=== PATIENT | female | born 1955 | race Caucasian/White ===

== ENCOUNTER 2017-12-17 07:58 | Emergency (ER) | payer BC ==
[2017-12-17] MEDS ORDERED: TETANUS & DIPHTHERIA TOX,ADULT 0.5 ML VIAL ONE (08:38)
--- NOTE | 2017-12-17 08:39 | EDPHYS ---
Physician Documentation [facility] Name: Beena Rutherford Age: 62 yrs Sex: Female : 1955 Arrival Date: 12/17/2017 Time: 08:02 Bed 5 Private MD: Eugene Mills C ED Physician Olu Miller HPI: 12/17 08:32 This 62 yrs old Female presents to ER via Ambulatory with complaints of jr8 Finger Injury. 08:32 The patient or guardian reports pain, swelling, tenderness. The complaints affect the jr8 PIP of right middle finger. Context: The problem was sustained outdoors, resulted from a penetrating injury, sago palm . Onset: The symptoms/episode began/occurred acutely, yesterday. Modifying factors: The symptoms are alleviated by nothing, the symptoms are aggravated by movement. Associated signs and symptoms: The patient has no apparent associated signs or symptoms. Severity of symptoms: At their worst the symptoms were mild, in the emergency department the symptoms are unchanged. The patient has not experienced similar symptoms in the past. The patient has not recently seen a physician. Historical: - Allergies: 08:32 NKA; iw - Home Meds: 08:32 lithium carbonate 450 mg Oral TbER every 3 days [Active]; alendronate 10 mg oral tab iw weekly [Active]; - PMHx: 08:32 kidney disease; iw - PSHx: 08:32 Cholecystectomy; iw - Immunization history:: Adult Immunizations not up to date. - Social history:: Smoking status: Patient/guardian denies using tobacco. ROS: 08:32 Eyes: Negative for injury, pain, redness, and discharge, ENT: Negative for injury, jr8 pain, and discharge, Neck: Negative for injury, pain, and swelling, Cardiovascular: Negative for chest pain, palpitations, and edema, Respiratory: Negative for shortness of breath, cough, wheezing, and pleuritic chest pain, Abdomen/GI: Negative for abdominal pain, nausea, vomiting, diarrhea, and constipation, Back: Negative for injury and pain, Skin: Negative for injury, rash, and discoloration, Neuro: Negative for headache, weakness, numbness, tingling, and seizure. 08:32 MS/extremity: Positive for pain, puncture, swelling, tenderness, of the PIP of right middle finger. Exam: 08:32 Cardiovascular: Regular rate and rhythm with a normal S1 and S2. No gallops, murmurs, jr8 or rubs. Normal PMI, no JVD. No pulse deficits. Respiratory: Lungs have equal breath sounds bilaterally, clear to auscultation and percussion. No rales, rhonchi or wheezes noted. No increased work of breathing, no retractions or nasal flaring. Skin: Warm, dry with normal turgor. Normal color with no rashes, no lesions, and no evidence of cellulitis. MS/ Extremity: Pulses equal, no cyanosis. Neurovascular intact. Full, normal range of motion. Mild swelling to the PIP of the middle finger right hand. Tender to palpation. Small puncture noted over the joint. Minimal pain with passive flextion with resistence. No cellulitis or lymphangitis noted Neuro: Awake and alert, GCS 15, oriented to person, place, time, and situation. Cranial nerves II-XII grossly intact. Motor strength 5/5 in all extremities. Sensory grossly intact. Cerebellar exam normal. Normal gait. Vital Signs: 08:32 BP 144 / 80; Pulse 53; Resp 16 S; Temp 98.2; Pulse Ox 99% on R/A; Weight 56.7 kg; iw Height 5 ft. 2 in. (157.48 cm); Pain 3/10; 08:32 Body Mass Index 22.86 (56.70 kg, 157.48 cm) iw MDM: 08:22 Patient medically screened. jr8 08:37 Data reviewed: vital signs, nurses notes, and as a result, I will discharge patient. jr8 Data interpreted: Pulse oximetry: on room air is 99 %. Interpretation: normal. Counseling: I had a detailed discussion with the patient and/or guardian regarding: the historical points, exam findings, and any diagnostic results supporting the discharge/admit diagnosis, the need for outpatient follow up, a family practitioner, to return to the emergency department if symptoms worsen or persist or if there are any questions or concerns that arise at home. 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 Exp: sg 05/04/2019. Lot #: [id number]. } Route: IM; Site: left deltoid; 09:00 Follow up: Response: No adverse reaction Disposition: 12/17/17 08:38 Discharged to Home. Impression: Puncture wound without foreign body of finger without damage to nail. - Condition is Stable. - Discharge Instructions: Puncture Wound. - Prescriptions for Keflex 500 mg Oral Capsule - take 1 capsule by ORAL route every 8 hours for 7 days; 21 capsule. - Medication Reconciliation Form, Thank You Letter, Antibiotic Education, Prescription Opioid Use form. - Follow up: Eugene Mills MD; When: 5 - 6 days; Reason: Recheck today's complaints, Continuance of care, Re-evaluation by your physician. - Problem is new. - Symptoms have improved. Addendum: 12/19/2017 08:53 Co-signature as Attending Physician, Olu Miller MD I agree with the assessment and c joseph plan of care. Signatures: Sonido Cormier RN Olu Rice MD MD cha Williams, Irene, RN RN Lorenzo Pina PA PA jr8 Corrections: (The following items were deleted from the chart) 12/17 08:45 08:38 12/17/2017 08:38 Discharged to Home. Impression: Puncture wound without foreign sg body of finger without damage to nail. Condition is Stable. Forms are Medication Reconciliation Form, Thank You Letter, Antibiotic Education, Prescription Opioid Use. Follow up: Eugene Mills; When: 5 - 6 days; Reason: Recheck today's complaints, Continuance of care, Re-evaluation by your physician. Problem is new. Symptoms have improved. jr8
--- NOTE | 2017-12-17 08:39 | ER ---
Nurse's Notes [facility] Name: Beena Rutherford Age: 62 yrs Sex: Female : 1955 Arrival Date: 12/17/2017 Time: 08:02 Bed 5 Private MD: Eugene Mills C Diagnosis: Puncture wound without foreign body of finger without damage to nail Presentation: 12/17 08:28 Presenting complaint: Patient states: pt got stuck with palm frond to right middle iw finger yesterday, has pain, mild swelling and redness to area,is afraid there may be something stuck in finger. Transition of care: patient was not received from another setting of care. Onset of symptoms was December 16, 2017. Initial Sepsis Screen: Does the patient meet any 2 criteria? No. Patient's initial sepsis screen is negative. Does the patient have a suspected source of infection? No. Patient's initial sepsis screen is negative. Care prior to arrival: None. 08:28 Method Of Arrival: Ambulatory iw 08:28 Acuity: ALMA 4 iw Triage Assessment: 08:35 General: Appears in no apparent distress. Behavior is calm, cooperative, appropriate sg for age. Injury Description: Puncture sustained to PIP of right middle finger. Historical: - Allergies: 08:32 NKA; iw - Home Meds: 08:32 lithium carbonate 450 mg Oral TbER every 3 days [Active]; alendronate 10 mg oral tab iw weekly [Active]; - PMHx: 08:32 kidney disease; iw - PSHx: 08:32 Cholecystectomy; iw - Immunization history:: Adult Immunizations not up to date. - Social history:: Smoking status: Patient/guardian denies using tobacco. Screenin:35 Abuse screen: Denies threats or abuse. Denies injuries from another. Nutritional sg screening: No deficits noted. Tuberculosis screening: No symptoms or risk factors identified. Never had TB. Fall Risk None identified. Assessment: 08:35 General: Appears in no apparent distress. Behavior is calm, cooperative, appropriate sg for age. Pain: Complains of pain in PIP of right middle finger. Neuro: No deficits noted. Cardiovascular: No deficits noted. Denies chest pain, diaphoresis, fatigue, lightheadedness, nausea, palpitations, shortness of breath, syncope, vomiting. Respiratory: Airway is patent Respiratory effort is even, unlabored, Respiratory pattern is regular, symmetrical. GI: No signs and/or symptoms were reported involving the gastrointestinal system. : No signs and/or symptoms were reported regarding the genitourinary system. EENT: No signs and/or symptoms were reported regarding the EENT system. Derm: Skin is normal, Skin temperature is cool Bruising that is green, yellow, on PIP of right middle finger. Musculoskeletal: Circulation, motion, and sensation intact. Capillary refill is brisk, in bilateral fingers. Range of motion: intact in all extremities, Swelling present in PIP of right middle finger. Vital Signs: 08:32 BP 144 / 80; Pulse 53; Resp 16 S; Temp 98.2; Pulse Ox 99% on R/A; Weight 56.7 kg; iw Height 5 ft. 2 in. (157.48 cm); Pain 3/10; 08:32 Body Mass Index 22.86 (56.70 kg, 157.48 cm) iw ED Course: 08:02 Patient arrived in ED. mr 08:02 Eugene Mills MD is Private Physician. mr 08:21 Lorenzo Ospina PA is PHCP. jr8 08:21 Olu Miller MD is Attending Physician. jr8 08:22 Nils Armstrong, RN is Primary Nurse. hj 08:31 Triage completed. iw 08:32 Arm band placed on. iw 08:33 Primary Nurse role handed off by Nils Armstrong, RN sg 08:33 Sonido Cormier, RN is Primary Nurse. sg 08:35 Patient has correct armband on for positive identification. Bed in low position. Pulse sg ox on. NIBP on. 08:38 Eugene Mills MD is Referral Physician. jr8 08:40 No provider procedures requiring assistance completed. Patient did not have IV access sg during this emergency room visit. 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 Exp: sg 05/04/2019. Lot #: [id number]. } Route: IM; Site: left deltoid; 09:00 Follow up: Response: No adverse reaction sg Outcome: 08:38 Discharge ordered by . jr8 08:42 Discharged to home ambulatory. sg 08:42 Condition: good 08:42 Discharge instructions given to patient, Instructed on discharge instructions, follow up and referral plans. medication usage, safety practices, Demonstrated understanding of instructions, follow-up care, medications, Prescriptions given X 1. 08:45 Patient left the ED. sg Signatures: Sonido Cormier RN RN sg Rivera, Maria mr Williams, Irene, RN RN iw Roszak, Josh, PA PA jr8 Nils Armstrong RN RN hj
[2017-12-17 08:49] VITALS: BP 144/80; TEMP 98.2; O2SAT 99
== END 2017-12-17 08:45 | disposition home or self-care (01) ==
LOC: ER 07:58
DX: S61.232A Puncture wound without foreign body of right middle finger without damage to nail, initial encounter (principal); W26.9XXA Contact with unspecified sharp object(s), initial encounter; Y93.9 Activity, unspecified; Y92.9 Unspecified place or not applicable; Z23 Encounter for immunization
CPT/HCPCS: 90714; 99283

== ENCOUNTER → 2018-05-25 | Day surgery (SDC) | payer BC ==
[2011-12-11 07:58] VITALS: BP 118/72
--- NOTE | 2018-05-25 12:07 | RAD REPORT ---
EXAM DESCRIPTION: US - Breast Core BX w/US Guidance - 05/25/2018 11:00 am CLINICAL HISTORY: ICD N 60.92. COMPARISON: May 23, 2018 ultrasound TECHNIQUE: The risks, benefits and alternatives to the procedure were explained to the patient and i nformed consent obtained. The 7 mm hypoechoic structure within the left breast was localized under so nographic guidance. It abuts the chest wall. Skin and subcutaneous tissues were anesthetized with Lidocaine. A 14-gauge vacuum assisted core biops y of the lesion was performed. A 2 cm core specimen was obtained. During the deployment of the device the patient moved and it is uncertain if the lesion was adequately sampled. The patient experienced a vasovagal response which lasted several minutes. When the patient recovered she stated that she has a history of panic attacks and was quite anxious about the procedure. Given what had transpired it was decided to not perform additional biopsies. The specimen was given to pathology. IMPRESSION: 1. One vacuum assisted core biopsy of a 7 mm hypoechoic mass within the left breast At t he time of this dictation the pathology report was not available. If it comes back inconclusive it is recommended that the patient be sedated prior to rebiopsy. Another option would be for the patient t o have an MRI and if result comes back negative then a biopsy would not be to be obtained. 2. The options were explained to the patient and the patient's after the procedure. The patie nt left the department in good condition.
== END ==
LOC: DS 09:51
PROVIDERS: ATTEND Specialist
PROC: 0HBU3ZX Excision of Left Breast, Percutaneous Approach, Diagnostic (ICD-10-PCS; principal; 2018-05-25)
DX: N60.92 Unspecified benign mammary dysplasia of left breast (principal)
CPT/HCPCS: 19083; 88305

== ENCOUNTER 2020-07-22 08:32 | Emergency (ER) | payer OTHER ==
[2020-07-22 09:51] LABS: Absolute Lymphocytes (CBC) 1.8 K/uL (0.7-4.9); Basophils % 0.3 % (0-1.3); Hematocrit 40.3 % (36.0-45.0); Lymphocytes % 29.3 % (15.3-44.8); MPV 8.6 fL (7.6-11.3); RBC Red Blood Cell Count 4.35 M/uL (3.86-4.86)
[2020-07-22 09:59] LABS: Albumin 3.8 g/dL (3.4-5.0); Bilirubin Direct 0.1 mg/dL (0-0.2); Bilirubin Total 0.6 mg/dL (0.2-1.0); Potassium 3.8 mmol/L (3.5-5.1); Protein, Total 7.1 g/dL (6.4-8.2)
[2020-07-22] MEDS ORDERED: BISACODYL 10 MG RECTAL SUPP ONE (10:03)
[2020-07-22] MEDS ORDERED: NA CHLORIDE 0.9% 1,000 ML ONE (10:04)
[2020-07-22] MEDS ORDERED: LACTULOSE 20 GM/30 ML UCUP ONE (10:04)
[2020-07-22] MEDS ORDERED: NA CHLORIDE 0.9% 500 ML ONE (10:39)
--- NOTE | 2020-07-22 11:30 | RAD REPORT ---
EXAM DESCRIPTION: CT - Abdomen Pelvis W Contrast - 07/22/2020 11:02 am CLINICAL HISTORY: ABD PAIN COMPARISON: CT ABD PELVIS W CONTRAST dated 12/08/2011 TECHNIQUE: Biphasic, helical CT imaging of the abdomen and pelvis was performed following 100 ml non -ionic IV contrast. Oral contrast was given. All CT scans are performed using dose optimization technique as appropriate and may include automated exposure control or mA/KV adjustment according to patient size. FINDINGS: No suspicious findings in the lung bases. Liver size is normal. Multiple simple liver cysts are present largest in the midline left lobe 3.5 cm in size. These are not clearly different from comparison. No spleen or pancreas acute finding. Gallb ladder is absent. No abnormal biliary tree dilatation. Bilateral renal cortical thinning is present. No hydronephrosis, renal mass or delayed renal function . Renal function is symmetric. No obstructing or nonobstructing calculi identifiable. No pyelonephrit is or acute parenchymal process. No bladder abnormalities. No adrenal abnormalities. A few phlebolith s are seen along the floor the pelvis. Atrophic uterus is present. Ovaries are partially obscured by the adjacent bowel. No suspicion for an ovarian process. No gastric dilatation or wall thickening. Small duodenal diverticulum is present. No dilated small luis manuel wel loop. Moderate stool volume present throughout the colon from cecum through the tortuous and redu ndant sigmoid colon. Distal rectal wall thickening and edema are present. There is minimal stranding in the adjacent fat. This is potentially artifact of incomplete distention. However, rectal infectious/ inflammatory proce ss or rectal mass are both considerations. The large stool volume extends to this point of the large intestine. No free air, free fluid or pneumatosis. No hernia, mass or bulky lymphadenopathy. No suspicious bony findings. IMPRESSION: Wall thickening and edema are present involving the distal rectum with moderate stool vo lume filling the colon proximal to this focal finding. Infectious/inflammatory process of the colon is possible. Malignancy is also a consideration and need s endoscopic follow-up. No lymphadenopathy, liver lesion or other finding to suspect distant disease.
[2020-07-22] MEDS ORDERED: METRONIDAZOLE 500mg IVPB 500 MG/100 ML BAG IV ONE (11:58)
[2020-07-22] MEDS ORDERED: CIPROFLOXACIN 400mg IV 400 MG/200 ML BAG IV ONE (11:58)
--- NOTE | 2020-07-22 12:06 | EDPHYS ---
Physician Documentation [facility] Name: Beena Rutherford Age: 65 yrs Sex: Female : 1955 Arrival Date: 07/22/2020 Time: 08:34 Bed 15 Private MD: Ronald Leal ED Physician Olu Miller HPI: 07/22 09:23 This 65 yrs old Female presents to ER via Ambulatory with complaints of cele Abdominal Pain, Back Pain, Constipation. 09:23 The patient presents with pain that is acute. The symptoms are located in the lumbar cele area. 09:24 The patient presents with abdominal pain in the upper abdomen, in the lower abdomen, cele abdominal distention in the upper abdomen, in the lower abdomen. Onset: The symptoms/episode began/occurred 5 day(s) ago. Onset: The symptoms/episode began/occurred 5 day(s) ago. The pain radiates to the lumbar area. Associated signs and symptoms: Pertinent positives: constipation. The problem was sustained no bm x 5 days. Modifying factors: The patient symptoms are alleviated by nothing, the patient symptoms are aggravated by nothing. Severity of symptoms: At their worst the symptoms were mild, moderate, in the emergency department the symptoms are unchanged. Historical: - Allergies: 08:45 NKA; sv - PMHx: 08:45 kidney disease; Bipolar disorder; Constipation; sv - PSHx: 08:45 Cholecystectomy; sv - Immunization history:: Flu vaccine is up to date. - Social history:: Smoking status: Patient denies any tobacco usage or history of. - Family history:: not pertinent. ROS: 09:24 Constitutional: Negative for fever, chills, and weight loss, Eyes: Negative for injury, cele pain, redness, and discharge, ENT: Negative for injury, pain, and discharge, Neck: Negative for injury, pain, and swelling, Cardiovascular: Negative for chest pain, palpitations, and edema, Respiratory: Negative for shortness of breath, cough, wheezing, and pleuritic chest pain, Back: Negative for injury and pain, : Negative for injury, bleeding, discharge, and swelling, MS/Extremity: Negative for injury and deformity, Skin: Negative for injury, rash, and discoloration, Neuro: Negative for headache, weakness, numbness, tingling, and seizure, Psych: Negative for depression, anxiety, suicide ideation, homicidal ideation, and hallucinations, Allergy/Immunology: Negative for hives, rash, and allergies, Endocrine: Negative for neck swelling, polydipsia, polyuria, polyphagia, and marked weight changes, Hematologic/Lymphatic: Negative for swollen nodes, abnormal bleeding, and unusual bruising. 09:24 Abdomen/GI: Positive for abdominal pain, constipation, of the right upper quadrant, left upper quadrant, right lower quadrant and left lower quadrant. Exam: 09:24 Constitutional: This is a well developed, well nourished patient who is awake, alert, cele and in no acute distress. Head/Face: Normocephalic, atraumatic. Eyes: Pupils equal round and reactive to light, extra-ocular motions intact. Lids and lashes normal. Conjunctiva and sclera are non-icteric and not injected. Cornea within normal limits. Periorbital areas with no swelling, redness, or edema. ENT: Nares patent. No nasal discharge, no septal abnormalities noted. Tympanic membranes are normal and external auditory canals are clear. Oropharynx with no redness, swelling, or masses, exudates, or evidence of obstruction, uvula midline. Mucous membranes moist. Neck: Trachea midline, no thyromegaly or masses palpated, and no cervical lymphadenopathy. Supple, full range of motion without nuchal rigidity, or vertebral point tenderness. No Meningismus. Chest/axilla: Normal chest wall appearance and motion. Nontender with no deformity. No lesions are appreciated. Cardiovascular: Regular rate and rhythm with a normal S1 and S2. No gallops, murmurs, or rubs. Normal PMI, no JVD. No pulse deficits. Respiratory: Lungs have equal breath sounds bilaterally, clear to auscultation and percussion. No rales, rhonchi or wheezes noted. No increased work of breathing, no retractions or nasal flaring. Back: No spinal tenderness. No costovertebral tenderness. Full range of motion. Female : Normal external genitalia. Skin: Warm, dry with normal turgor. Normal color with no rashes, no lesions, and no evidence of cellulitis. MS/ Extremity: Pulses equal, no cyanosis. Neurovascular intact. Full, normal range of motion. Neuro: Awake and alert, GCS 15, oriented to person, place, time, and situation. Cranial nerves II-XII grossly intact. Motor strength 5/5 in all extremities. Sensory grossly intact. Cerebellar exam normal. Normal gait. Psych: Awake, alert, with orientation to person, place and time. Behavior, mood, and affect are within normal limits. 09:24 Abdomen/GI: Inspection: abdomen appears normal, Bowel sounds: normal, Palpation: mild abdominal tenderness, in all quadrants, Liver: no appreciated palpable abnormalities, Hernia: not appreciated. Vital Signs: 08:43 Weight 55.34 kg; Height 5 ft. 2 in. (157.48 cm); Pain 0/10; sv 08:46 BP 129 / 4; Pulse 70; Resp 16; Temp 98.1; Pulse Ox 99% on R/A; Weight 55.34 kg; Height vg1 5 ft. 2 in. (157.48 cm); Pain 0/10; 09:30 BP 124 / 73; Pulse 51; Resp 14; Pulse Ox 99% on R/A; vg1 10:00 BP 121 / 71; Pulse 55; Resp 14; Pulse Ox 100% on R/A; vg1 10:30 BP 144 / 88; Pulse 78; Resp 16; Pulse Ox 99% on R/A; vg1 11:15 BP 126 / 75; Pulse 53; Resp 14; Pulse Ox 100% on R/A; vg1 12:05 BP 122 / 97; Pulse 70; Resp 16; Pulse Ox 100% on R/A; vg1 13:45 BP 130 / 91; Pulse 73; Resp 14; Pulse Ox 100% on R/A; vg1 08:46 Body Mass Index 22.31 (55.34 kg, 157.48 cm) vg1 MDM: 08:41 Patient medically screened. cele 09:26 Differential diagnosis: Hydronephrosis Leaking Aortic Aneurysm Renal Infarction cele Ureterolithiasis appendicitis, bowel obstruction, cholecystitis, pancreatitis, Ureterolithiasis, urinary tract infection. Data reviewed: vital signs, nurses notes, lab test result(s), radiologic studies, CT scan. Data interpreted: telemetry monitor: rate is 60 beats/min, rhythm is regular, Pulse oximetry: on room air. Counseling: I had a detailed discussion with the patient and/or guardian regarding: the historical points, exam findings, and any diagnostic results supporting the discharge/admit diagnosis, lab results, radiology results. 07/22 09:00 Order name: Basic Metabolic Panel; Complete Time: 10:11 vg1 07/22 09:00 Order name: CBC with Diff; Complete Time: 10: vg1 07/22 09:00 Order name: Hepatic Function; Complete Time: 10: vg1 07/22 09:00 Order name: Lipase; Complete Time: 10: vg1 07/22 09:23 Order name: CT Abd/Pelvis - PO and IV Contrast; Complete Time: 12:08 [facility] 07/22 09:00 Order name: IV Saline Lock; Complete Time: :42 1 07/22 09:00 Order name: Labs collected and sent; Complete Time: :42 vg1 Administered Medications: 10:10 Drug: NS 0.9% 1000 ml Route: IV; Rate: 1 bolus; Site: right antecubital; vg1 11:21 Follow up: IV Status: Completed infusion; IV Intake: 1000ml vg1 10:10 Drug: Dulcolax Suppository 10 mg Route: MI; vg1 10:45 Follow up: Response: No adverse reaction vg1 10:10 Drug: Lactulose 60 grams Volume: 45 ml; Route: PO; vg1 10:45 Follow up: Response: No adverse reaction vg1 11:21 Drug: NS 0.9% 500 ml Route: IV; Rate: bolus; Site: right antecubital; vg1 11:45 Follow up: IV Status: Completed infusion; IV Intake: 500ml vg1 12:10 Drug: Flagyl 500 mg Volume: 100 ml; Route: IVPB; Rate: 200 ml/hr; Infused Over: 30 vg1 mins; Site: right antecubital; 12:47 Follow up: IV Status: Completed infusion; IV Intake: 100ml vg1 12:44 Drug: Cipro 400 mg Volume: 200 ml; Route: IVPB; Infused Over: 60 mins; Site: right vg1 antecubital; Disposition: 07/22/20 12:06 Discharged to Home. Impression: Abdominal tenderness, Left sided colitis with other complication - pain , constipation, Constipation. - Condition is Fair. - Discharge Instructions: Abdominal Pain, Adult, Constipation, Adult, How to Take a Sitz Bath, Constipation, Adult, [id number], Abdominal Pain, Adult, [id number], Colitis. - Prescriptions for Bentyl 20 mg Oral Tablet - take 1 tablet by ORAL route every 6 hours As needed; 20 tablet. Flagyl 500 mg Oral Tablet - take 1 tablet by ORAL route every 6 hours for 7 days; 28 tablet. Zofran 4 mg Oral Tablet - take 1 tablet by ORAL route every 12 hours As needed; 20 tablet. Lactulose 10 gram/15 mL Oral Solution - take 30 milliliter by ORAL route once daily; 300 milliliter. Cipro 500 mg Oral Tablet - take 1 tablet by ORAL route every 12 hours for 7 days; 14 tablet. - Medication Reconciliation Form, Thank You Letter, Antibiotic Education, Prescription Opioid Use form. - Follow up: Ronald Leal DO; When: 2 - 3 days; Reason: Recheck today's complaints, Continuance of care, Re-evaluation by your physician. Follow up: Cee Quintanilla MD; When: 2 - 3 days; Reason: Recheck today's complaints, Continuance of care, Re-evaluation by your physician. - Problem is new. - Symptoms have improved. Signatures: Dispatcher [employer] Mariah Bernard, RN RN Olu Toro MD MD cha Garcia, Victoria, RN RN vg1 Corrections: (The following items were deleted from the chart) 14:03 12:06 07/22/2020 12:06 Discharged to Home. Impression: Abdominal tenderness; Left sided vg1 colitis with other complication - pain , constipation; Constipation. Condition is Fair. Forms are Medication Reconciliation Form, Thank You Letter, Antibiotic Education, Prescription Opioid Use. Follow up: Ronald Leal; When: 2 - 3 days; Reason: Recheck today's complaints, Continuance of care, Re-evaluation by your physician. Follow up: Cee Quintanilla; When: 2 - 3 days; Reason: Recheck today's complaints, Continuance of care, Re-evaluation by your physician. Problem is new. Symptoms have improved. cele
--- NOTE | 2020-07-22 12:06 | ER ---
Nurse's Notes [facility] Name: Beena Rutherford Age: 65 yrs Sex: Female : 1955 Arrival Date: 07/22/2020 Time: 08:34 Bed 15 Private MD: Ronald Leal Diagnosis: Abdominal tenderness;Left sided colitis with other complication-pain , constipation;Constipation Presentation: 07/22 08:43 Chief complaint: Patient states: left lower back/flank pain, constipation for about a sv week. Dr Leal prescribed Lactulose and Senna but has not had a good BM. Pt gave herself an enema on Tuesday, only had pellets of stool after that. +flatulance, denies dysuria. Coronavirus screen: Client denies travel out of the [place] in the last 14 days. At this time, the client does not indicate any symptoms associated with coronavirus-19. Ebola Screen: No symptoms or risks identified at this time. Risk Assessment: Do you want to hurt yourself or someone else? Patient reports no desire to harm self or others. Onset of symptoms was July 2020. 08:43 Method Of Arrival: Ambulatory sv 08:43 Acuity: ALMA 3 sv 08:45 Initial Sepsis Screen: Does the patient meet any 2 criteria? No. Patient's initial vg1 sepsis screen is negative. Does the patient have a suspected source of infection? No. Patient's initial sepsis screen is negative. Historical: - Allergies: 08:45 NKA; sv - PMHx: 08:45 kidney disease; Bipolar disorder; Constipation; sv - PSHx: 08:45 Cholecystectomy; sv - Immunization history:: Flu vaccine is up to date. - Social history:: Smoking status: Patient denies any tobacco usage or history of. - Family history:: not pertinent. Screenin:43 Abuse screen: Denies threats or abuse. Denies injuries from another. Nutritional sv screening: No deficits noted. Tuberculosis screening: No symptoms or risk factors identified. Fall Risk None identified. Assessment: 08:40 General: Appears uncomfortable, Behavior is calm, cooperative. Pain: Complains of pain vg1 in LLQ that radiates to left side of back. Pain currently is 0 out of 10 on a pain scale. 08:40 Neuro: Level of Consciousness is awake, alert, obeys commands, Oriented to person, vg1 place, time, situation. Cardiovascular: Patient's skin is warm and dry. Respiratory: Airway is patent Respiratory effort is even, unlabored, Respiratory pattern is regular, symmetrical. GI: Bowel sounds present X 4 quads. Abd is soft and non tender Patient states last BM was a week ago. Stated stool was hard and brown and was straining to use to restroom. Patient states has hemoids. : No signs and/or symptoms were reported regarding the genitourinary system. EENT: No signs and/or symptoms were reported regarding the EENT system. Derm: Skin is pink, warm \T\ dry. Musculoskeletal: Range of motion: intact in all extremities. 08:59 Reassessment: Received V/O from Dr Miller to order ABD workup for patient. vg1 10:00 Reassessment: Patient appears in no apparent distress at this time. No changes from vg1 previously documented assessment. Patient and/or family updated on plan of care and expected duration. Pain level reassessed. Patient is alert, oriented x 3, equal unlabored respirations, skin warm/dry/pink. 10:10 Reassessment: Patient has a BM. Stool was hard and brown. Patient had four chowdary sized vg1 stool. 10:50 Reassessment: Patient had a BM. Patient stool was hard and brown. One small chowdary vg1 sized stool. 12:10 Reassessment: Patient up for d/c. Patient is currently receiving antibiotic treatment. vg1 12:40 Reassessment: Patient appears in no apparent distress at this time. Patient and/or vg1 family updated on plan of care and expected duration. Pain level reassessed. Patient passed a stool the size of a golf ball. Patient denied any pain. Stool was brown and hard. 13:17 Reassessment: Patient had a BM. Loose stool/Diarrhea noted. Provider Notified. vg1 Vital Signs: 08:43 Weight 55.34 kg; Height 5 ft. 2 in. (157.48 cm); Pain 0/10; sv 08:46 BP 129 / 4; Pulse 70; Resp 16; Temp 98.1; Pulse Ox 99% on R/A; Weight 55.34 kg; Height vg1 5 ft. 2 in. (157.48 cm); Pain 0/10; 09:30 BP 124 / 73; Pulse 51; Resp 14; Pulse Ox 99% on R/A; vg1 10:00 BP 121 / 71; Pulse 55; Resp 14; Pulse Ox 100% on R/A; vg1 10:30 BP 144 / 88; Pulse 78; Resp 16; Pulse Ox 99% on R/A; vg1 11:15 BP 126 / 75; Pulse 53; Resp 14; Pulse Ox 100% on R/A; vg1 12:05 BP 122 / 97; Pulse 70; Resp 16; Pulse Ox 100% on R/A; vg1 13:45 BP 130 / 91; Pulse 73; Resp 14; Pulse Ox 100% on R/A; vg1 08:46 Body Mass Index 22.31 (55.34 kg, 157.48 cm) vg1 ED Course: 08:34 Patient arrived in ED. rg4 08:35 Ronald Leal DO is Private Physician. rg4 08:39 Dahiana Morales, RN is Primary Nurse. vg1 08:41 Olu Miller MD is Attending Physician. cele 08:43 Patient has correct armband on for positive identification. Bed in low position. Call sv light in reach. Adult w/ patient. Pulse ox on. NIBP on. 08:45 Triage completed. sv 08:45 Arm band placed on. sv 09:20 Initial lab(s) drawn, by ri, sent to lab. Inserted saline lock: 20 gauge in right vg1 antecubital area, using aseptic technique. Blood collected. 11:02 CT Abd/Pelvis - PO and IV Contrast In Process Unspecified. EDMS 11:55 ED physician to see patient. vg1 12:04 Ronald Leal DO is Referral Physician. cele 12:05 Cee Quintanilla MD is Referral Physician. cele 12:30 No provider procedures requiring assistance completed. vg1 14:00 IV discontinued, intact, bleeding controlled, No redness/swelling at site. Pressure vg1 dressing applied. Administered Medications: 10:10 Drug: NS 0.9% 1000 ml Route: IV; Rate: 1 bolus; Site: right antecubital; vg1 11:21 Follow up: IV Status: Completed infusion; IV Intake: 1000ml vg1 10:10 Drug: Dulcolax Suppository 10 mg Route: IL; vg1 10:45 Follow up: Response: No adverse reaction vg1 10:10 Drug: Lactulose 60 grams Volume: 45 ml; Route: PO; vg1 10:45 Follow up: Response: No adverse reaction vg1 11:21 Drug: NS 0.9% 500 ml Route: IV; Rate: bolus; Site: right antecubital; vg1 11:45 Follow up: IV Status: Completed infusion; IV Intake: 500ml vg1 12:10 Drug: Flagyl 500 mg Volume: 100 ml; Route: IVPB; Rate: 200 ml/hr; Infused Over: 30 vg1 mins; Site: right antecubital; 12:47 Follow up: IV Status: Completed infusion; IV Intake: 100ml vg1 12:44 Drug: Cipro 400 mg Volume: 200 ml; Route: IVPB; Infused Over: 60 mins; Site: right vg1 antecubital; Intake: 11:21 IV: 1000ml; Total: 1000ml. vg1 11:45 IV: 500ml; Total: 1500ml. vg1 12:47 IV: 100ml; Total: 1600ml. vg1 Outcome: 12:06 Discharge ordered by . cele 14:00 Discharged to home ambulatory. vg1 14:00 Condition: stable 14:00 Discharge instructions given to patient, Instructed on discharge instructions, follow up and referral plans. medication usage, Demonstrated understanding of instructions, follow-up care, medications, Prescriptions given X 3. 14:03 Patient left the ED. vg1 Signatures: Dispatcher [employer] EDMS Mariah Reddy RN RN sv Anderson, Corey, MD MD cha Garcia, Rubi 4 Dahiana Morales RN RN vg1 Corrections: (The following items were deleted from the chart) 10:20 10:10 NS 0.9% 500 ml IV at bolus in right antecubital vg1 vg1 11:25 08:40 GI: Bowel sounds present X 4 quads. Abd is soft and non tender vg1 vg1 12:26 12:10 Cipro 400 mg 200 ml IVPB in right antecubital over 60 mins 200 ml vg1 vg1
[2020-07-24 17:07] VITALS: TEMP 98.1
[2020-07-24 17:12] VITALS: O2SAT 100
[2020-07-24 17:15] VITALS: BP 130/91
== END 2020-07-22 14:03 | disposition home or self-care (01) ==
LOC: ER 08:32
DX: K51.518 Left sided colitis with other complication (principal); K59.00 Constipation, unspecified; N28.9 Disorder of kidney and ureter, unspecified
CPT/HCPCS: 85025; 80048; 36415; 80076; 83690; 74177; Q9967; J7040; J7030; J0744; 96361; 96365; 96375; 99284